=== PATIENT | male | born 1985 | race Asian ===

== ENCOUNTER 2025-04-27 22:45 | Emergency (ER) | payer BC ==
[~2025-04-27] VITALS: Ht 162.6 cm; Wt 74.4 kg
[2025-04-27] MEDS: PROPOFOL 200 MG/20 ML VIAL IV ONE (11:59)
[2025-04-27] MEDS ORDERED: HYDROCODONE/APAP 5/325MG TABLET ONE (23:03)
[2025-04-27] MEDS: HYDROCODONE/APAP 5/325MG TABLET PO ONE (23:04)
[2025-04-27] MEDS ORDERED: PROPOFOL 20 ML IV ONE (23:35)
[2025-04-27] MEDS: IV NS 0.9% 1,000 ML BAG IV ONE (23:38)
[2025-04-28 00:54] VITALS: BP 144/89; TEMP 98.3; O2SAT 100
== END 2025-04-28 00:55 | disposition home or self-care (01) ==
LOC: ER 22:51
DX: S43.005A Unspecified dislocation of left shoulder joint, initial encounter (principal); X58.XXXA Exposure to other specified factors, initial encounter; Y93.89 Activity, other specified; Y92.89 Other specified places as the place of occurrence of the external cause; Y99.8 Other external cause status
CPT/HCPCS: 99285; 23650; 96360; 99152; 73030 ×2; J2704; J7030 ×2; G0500